=== PATIENT | male | born 1970 | race Caucasian/White ===

== ENCOUNTER 2023-06-18 17:09 | Emergency (ER) | payer OTHER ==
[~2023-06-18] VITALS: Ht 170.2 cm; Wt 136.1 kg
[2023-06-18 17:11] VITALS: BP 126/77; PULSE 72; RESP 18; TEMP 97.5; O2SAT 95
[2023-06-18] MEDS ORDERED: KETOROLAC 30 MG/ML VIAL IM ONE (18:35)
[2023-06-18] MEDS ORDERED: ACET-10509 PO (18:53)
[2023-06-18] MEDS ORDERED: IBUP-2213 PO (18:53)
== END 2023-06-18 19:10 | disposition home or self-care (01) ==
LOC: MED 17:09
DX: S62.323A Displaced fracture of shaft of third metacarpal bone, left hand, initial encounter for closed fracture (principal); Z79.899 Other long term (current) drug therapy; V49.88XA Car occupant (driver) (passenger) injured in other specified transport accidents, initial encounter; Y93.89 Activity, other specified; Y92.89 Other specified places as the place of occurrence of the external cause; Y99.8 Other external cause status
CPT/HCPCS: 29125; 73030; 73110; 96372; 99284; J1885